=== PATIENT | female | born 1970 ===

== ENCOUNTER 2016-08-14 20:56 | Emergency (ER) | payer OTHER ==
--- NOTE | 2016-08-14 22:29 | ED ORDER SUMMARY ---
..... Patient: ELDER COHEN OrderSheet [facility] VisitID: [id number] [address] [place] [address] 46y, F Registration Date/Time: 08/14/2016 ORDER SHEET Weight: 90.7 kg (stated) Allergies: No Known Drug Allergy GENERAL ORDERS: MEDICATION ORDERS: Prednisone PO 40 mg (NOW) (21:47 08/14/2016 Moni Garcia) (Ack 21:50 EInderbitzen R.N.) (21:53 EInderbitzen R.N.) DuoNeb Neb Tx 1 unit dose (NOW) (21:48 08/14/2016 Moni Garcia) (Ack 21:50 EInderbitzen R.N.) (22:[facility] Albuterol Neb Tx 1 unit dose (NOW) (21:52 08/14/2016 Moni Garcia) (Ack 21:53 EInderbitzen R.N.) (22:02 [facility] IV FLUIDS: ORDER SHEET NOTES: [Electronically signed by Manuel Garcia Dr. (22:29 08/14/2016)] [Electronically signed by Krystal Aguayo R.N. (22:43 08/14/2016)] [Electronically locked/signed by Krystal Aguayo R.N. (22:43 08/14/2016)]
--- NOTE | 2016-08-14 22:29 | ED NURSING NOTES ---
Clinical Report - Nurses [facility] [address] [place] [address] 08/14/2016 20:57 Patient: ELDER COHEN TRIAGE Triage time 21:15 Aug 14 2016. Acuity: LEVEL 3. Chief Complaint: "ASTHMA ATTACK" and WHEEZING. Alert. No acute distress. --21:20 Jo Ann Salamanca R.N. 21:15 08/14/16. BP: 124/69. HR: 101. RR: 24. O2 saturation: 100%. Temp: 98.2 F. Pain level now 0/10. --21:20 Jo Ann Salamanca R.N. Weight: 90.7 kg stated. Height/Length: 64 inches Per Patient. BMI: 34.3. --21:13 Jo Ann Salamanca R.N. Medications Pro air. --21:17 Jo Ann Salamanca R.N. Claritin-D 24 Hour Oral. --21:17 Jo Ann Salamanca R.N. Medication/allergy information source: the patient. --21:20 Jo Ann Salamanca R.N. Allergies No Known Drug Allergy. --21:17 Jo Ann Salamanca R.N. History Arrived by private vehicle. Historian: patient. Primary physician (Ilya). ( 18:00 Asthma - "feel very tight" wheezing audible in triage. Pt using Pro Air twice tonight, not better.). This started today. She has had a cough and wheezing. Treatment VIOLIN TUTOR: (Pro Air). PAST MEDICAL HX: Asthma. Immunizations: up-to-date. Last normal menstrual period- July 2016. Denies current . SOCIAL HX: Never smoker. Occasional alcohol use. No drug use. No infectious disease exposure. FALL RISK ASSESSMENT: Fall risk assessment completed. No fall risk identified. NUTRITIONAL RISK ASSESSMENT: The nutritional risk assessment revealed no deficiencies. FUNCTIONAL ASSESSMENT: Functional assessment: no impairments noted. LEARNING NEEDS ASSESSMENT: The learning needs assessment revealed no barriers. SKIN INTEGRITY ASSESSMENT: Skin integrity risk assessment completed. No skin integrity risk identified. --21:20 Jo Ann Salamanca R.N. PROBLEMS: Pelvic Pain. Vaginal Bleeding. Back Pain. Dysfunctional Uterine Bleeding. --21:17 Jo Ann Salamanca R.N. ADDITIONAL SURGERIES: Bunionectomy. . Jaw implant. Tubal Ligation. --21:17 Jo Ann Salamanca R.N. Interventions ID band on patient. To room. --21:20 Jo Ann Salamanca R.N. NURSING PROGRESS NOTES ( pt to family consult room for breathing tx, RT called on pt's arrival.). --21:20 Jo Ann Salamanca R.N. 21:37 08/14/2016 Duoneb (Ipratropium-Albuterol) Neb TX Nebulizer 1 unit dose given. Given by the respiratory therapist. Allergies verified and confirmed 5 rights. --22:02 Robson Chery, ER Dry End Operator 21:37 08/14/2016 Albuterol Neb TX Nebulizer 1 unit dose given. --22:02 Robson Chery, ER Dry End Operator late entry - 21:40 08/14/16. The initial plan of care for this patient includes an assessment with efforts to address impairment of the respiratory system. This plan of care was discussed with the patient. Patient gowned. Reassurance given. --22:29 Krystal Aguayo R.N. 21:40 08/14/16. Patient ready for evaluation. --22:29 Krystal Aguayo R.N. 21:52 08/14/2016 Prednisone PO Tablets 40 mg given. Allergies verified and confirmed 5 rights. --21:53 Krystal Aguayo R.N. 22:32 08/14/16. Patient waiting for disposition. --22:32 Krystal Aguayo R.N. DISPOSITION / DISCHARGE 22:42 08/14/16. Condition at departure: improved and stable. The goals identified in the patient's plan of care were met. --22:42 Krystal Aguayo R.N. 22:43 08/14/16. Condition at departure: improved and stable. No learning barriers present. Reviewed medication(s) side effects, precautions, dosing and course information. Prescription(s) given to the patient. Reviewed referral to a primary care physician for followup. Summary of care provided to patient via paper. Patient verbalized understanding. Written instructions provided in Estonian. The patient was discharged home and unaccompanied at time of discharge. She left the Emergency Department ambulatory and via private vehicle. Patient driving. --22:43 Krystal Aguayo R.N. 22:43 08/14/16. BP: 100/57. HR: 110. RR: 20. O2 saturation: 95%. Temp: 98.2 F. Pain level now 0/10. --22:43 Krystal Aguayo R.N. Departure time: 22:43 Aug 14 2016. --22:43 Krystal Aguayo R.N. Locked/Released at 08/14/2016 22:43 by Krystal Aguayo R.N.
--- NOTE | 2016-08-14 22:29 | ED NURSING NOTES ---
Clinical Report - Nurses [facility] [address] [place] [address] 08/14/2016 20:57 Patient: ELDER COHEN TRIAGE Triage time 21:15 Aug 14 2016. Acuity: LEVEL 3. Chief Complaint: "ASTHMA ATTACK" and WHEEZING. Alert. No acute distress. --21:20 Jo Ann Salamanca R.N. 21:15 08/14/16. BP: 124/69. HR: 101. RR: 24. O2 saturation: 100%. Temp: 98.2 F. Pain level now 0/10. --21:20 Jo Ann Salamanca R.N. Weight: 90.7 kg stated. Height/Length: 64 inches Per Patient. BMI: 34.3. --21:13 Jo Ann Salamanca R.N. Medications Pro air. --21:17 Jo Ann Salamanca R.N. Claritin-D 24 Hour Oral. --21:17 Jo Ann Salamanca R.N. Medication/allergy information source: the patient. --21:20 Jo Ann Salamanca R.N. Allergies No Known Drug Allergy. --21:17 Jo Ann Salamanca R.N. History Arrived by private vehicle. Historian: patient. Primary physician (Ilya). ( 18:00 Asthma - "feel very tight" wheezing audible in triage. Pt using Pro Air twice tonight, not better.). This started today. She has had a cough and wheezing. Treatment BELT GLASS SANDER: (Pro Air). PAST MEDICAL HX: Asthma. Immunizations: up-to-date. Last normal menstrual period- July 2016. Denies current . SOCIAL HX: Never smoker. Occasional alcohol use. No drug use. No infectious disease exposure. FALL RISK ASSESSMENT: Fall risk assessment completed. No fall risk identified. NUTRITIONAL RISK ASSESSMENT: The nutritional risk assessment revealed no deficiencies. FUNCTIONAL ASSESSMENT: Functional assessment: no impairments noted. LEARNING NEEDS ASSESSMENT: The learning needs assessment revealed no barriers. SKIN INTEGRITY ASSESSMENT: Skin integrity risk assessment completed. No skin integrity risk identified. --21:20 Jo Ann Salamanca R.N. PROBLEMS: Pelvic Pain. Vaginal Bleeding. Back Pain. Dysfunctional Uterine Bleeding. --21:17 Jo Ann Salamanca R.N. ADDITIONAL SURGERIES: Bunionectomy. . Jaw implant. Tubal Ligation. --21:17 Jo Ann Salamanca R.N. Interventions ID band on patient. To room. --21:20 Jo nAn Salamanca R.N. NURSING PROGRESS NOTES ( pt to family consult room for breathing tx, RT called on pt's arrival.). --21:20 Jo Ann Salamanca R.N. 21:37 08/14/2016 Duoneb (Ipratropium-Albuterol) Neb TX Nebulizer 1 unit dose given. Given by the respiratory therapist. Allergies verified and confirmed 5 rights. --22:02 Robson Chery, ER Store Deli Manager 21:37 08/14/2016 Albuterol Neb TX Nebulizer 1 unit dose given. --22:02 Robson Chery, ER Store Deli Manager late entry - 21:40 08/14/16. The initial plan of care for this patient includes an assessment with efforts to address impairment of the respiratory system. This plan of care was discussed with the patient. Patient gowned. Reassurance given. --22:29 Krystal Aguayo R.N. 21:40 08/14/16. Patient ready for evaluation. --22:29 Krystal Aguayo R.N. 21:52 08/14/2016 Prednisone PO Tablets 40 mg given. Allergies verified and confirmed 5 rights. --21:53 Krystal Aguayo R.N. 22:32 08/14/16. Patient waiting for disposition. --22:32 Krystal Aguayo R.N. DISPOSITION / DISCHARGE 22:42 08/14/16. Condition at departure: improved and stable. The goals identified in the patient's plan of care were met. --22:42 Krystal Aguayo R.N. 22:43 08/14/16. Condition at departure: improved and stable. No learning barriers present. Reviewed medication(s) side effects, precautions, dosing and course information. Prescription(s) given to the patient. Reviewed referral to a primary care physician for followup. Summary of care provided to patient via paper. Patient verbalized understanding. Written instructions provided in Italian. The patient was discharged home and unaccompanied at time of discharge. She left the Emergency Department ambulatory and via private vehicle. Patient driving. --22:43 Krystal Aguayo R.N. 22:43 08/14/16. BP: 100/57. HR: 110. RR: 20. O2 saturation: 95%. Temp: 98.2 F. Pain level now 0/10. --22:43 Krystal Aguayo R.N. Departure time: 22:43 Aug 14 2016. --22:43 Krystal Aguayo R.N. Locked/Released at 08/14/2016 22:43 by Krystal Aguayo R.N.
--- NOTE | 2016-08-14 22:29 | ED ORDER SUMMARY ---
..... Patient: ELDER COHEN OrderSheet VisitID: [id number] [address] [place] [address] 46y, F Registration Date/Time: 08/14/2016 ORDER SHEET Weight: 90.7 kg (stated) Allergies: No Known Drug Allergy GENERAL ORDERS: MEDICATION ORDERS: Prednisone PO 40 mg (NOW) (21:47 08/14/2016 Moni Garcia) (Ack 21:50 EInderbitzen R.N.) (21:53 EInderbitzen R.N.) DuoNeb Neb Tx 1 unit dose (NOW) (21:48 08/14/2016 Moni Garcia) (Ack 21:50 EInderbitzen R.N.) (22:02 [facility] Act[facility]) Albuterol Neb Tx 1 unit dose (NOW) (21:52 08/14/2016 Moni Garcia) (Ack 21:53 EInderbitzen R.N.) (22:02 [facility] Act[facility]) IV FLUIDS: ORDER SHEET NOTES: [Electronically signed by Manuel Garcia Dr. (22:29 08/14/2016)] [Electronically signed by Krystal Aguayo R.N. (22:43 08/14/2016)] [Electronically locked/signed by Krystal Aguayo R.N. (22:43 08/14/2016)]
--- NOTE | 2016-08-14 22:29 | ED CLINICAL REPORT ---
Clinical Report - Physicians/Mid Levels [facility] [address] [place] [address] 08/14/2016 20:57 Patient: ELDER COHEN Time Seen: 21:40; initial patient contact. Arrived- By private vehicle. Historian- patient. HISTORY OF PRESENT ILLNESS Chief Complaint: DYSPNEA and HISTORY OF ASTHMA. This started just prior to arrival and is still present and worsening. It was gradual in onset and has been constant. The dyspnea is described as moderate. (No improvement with inhaler). She has not had worsening of dyspnea with walking or exertion. No improvement of dyspnea with rest. The patient has had a cough and wheezing. No sputum production, fever, sweating episodes, chills or dyspnea on exertion. No chest pain or discomfort, calf pain, foot swelling or orthopnea. No anxiety or palpitations. Similar symptoms previously: Many times. Recent medical care: Not recently seen/assessed. REVIEW OF SYSTEMS The patient has had a nasal discharge. No sinus drainage or fainting episodes. All systems otherwise negative, except as recorded above. PAST HISTORY Pelvic Pain. Vaginal Bleeding. Back Pain. Dysfunctional Uterine Bleeding. SURGERIES: Bunionectomy. . Jaw implant. Tubal Ligation. Medications: Claritin-D 24 Hour Oral. Pro air. Allergies: No Known Drug Allergy. SOCIAL HISTORY Never smoker. Occasional alcohol use. No drug use. ADDITIONAL NOTES The nursing notes have been reviewed. PHYSICAL EXAM Vital Signs: 08/14/2016 21:15 BP: 124/69. HR: 101. RR: 24. O2 saturation: 100%. Temp: 98.2 F. Have been reviewed. Blood pressure normal. Tachycardic. Tachypneic. Temperature normal. Oxygen saturation normal. Appearance: Alert. No acute distress. Eyes: Eyes normal inspection. ENT: Pharynx normal. Neck: Normal inspection. No jugular venous distention. CVS: Normal heart rate and rhythm. Heart sounds normal. Respiratory: No respiratory distress. Breath sounds normal. (Exam after Duoneb and Albuterol neb). Skin: Normal skin color. No rash. Extremities: No calf tenderness. No lower extremity edema. Neuro: Oriented X 3. PROGRESS AND PROCEDURES Course of Care: Prednisone 40 mg PO given. DuoNeb nebulizer treatment (1 unit dose) given. The patient's symptoms are now gone. Physical exam findings are improved. Disposition: Discharged home in good and improved condition. Condition: good. CLINICAL IMPRESSION Mild intermittent asthma with an acute exacerbation. No status asthmaticus. INSTRUCTIONS Avoid tobacco smoke. Your Current Medications: CONTINUE TAKING THE FOLLOWING MEDICATIONS: Claritin-D 24 Hour Oral. Pro air*. Prescription Medications: Prednisone 20 mg: take 2 orally every day for 4 days. Dispense sufficient quantity. No refills. (Start on 08/15/16) Follow-up with: [facility], Family Practice, , [address] [place] [address], [id number], [place] [id number] Follow up in about two days. Call for an appointment. (Electronically signed by Manuel Garcia Dr. 08/14/2016 22:29)
--- NOTE | 2016-08-14 22:29 | ED CLINICAL REPORT ---
Clinical Report - Physicians/Mid Levels [facility] [address] [place] [address] 08/14/2016 20:57 Patient: ELDER COHEN Time Seen: 21:40; initial patient contact. Arrived- By private vehicle. Historian- patient. HISTORY OF PRESENT ILLNESS Chief Complaint: DYSPNEA and HISTORY OF ASTHMA. This started just prior to arrival and is still present and worsening. It was gradual in onset and has been constant. The dyspnea is described as moderate. (No improvement with inhaler). She has not had worsening of dyspnea with walking or exertion. No improvement of dyspnea with rest. The patient has had a cough and wheezing. No sputum production, fever, sweating episodes, chills or dyspnea on exertion. No chest pain or discomfort, calf pain, foot swelling or orthopnea. No anxiety or palpitations. Similar symptoms previously: Many times. Recent medical care: Not recently seen/assessed. REVIEW OF SYSTEMS The patient has had a nasal discharge. No sinus drainage or fainting episodes. All systems otherwise negative, except as recorded above. PAST HISTORY Pelvic Pain. Vaginal Bleeding. Back Pain. Dysfunctional Uterine Bleeding. SURGERIES: Bunionectomy. . Jaw implant. Tubal Ligation. Medications: Claritin-D 24 Hour Oral. Pro air. Allergies: No Known Drug Allergy. SOCIAL HISTORY Never smoker. Occasional alcohol use. No drug use. ADDITIONAL NOTES The nursing notes have been reviewed. PHYSICAL EXAM Vital Signs: 08/14/2016 21:15 BP: 124/69. HR: 101. RR: 24. O2 saturation: 100%. Temp: 98.2 F. Have been reviewed. Blood pressure normal. Tachycardic. Tachypneic. Temperature normal. Oxygen saturation normal. Appearance: Alert. No acute distress. Eyes: Eyes normal inspection. ENT: Pharynx normal. Neck: Normal inspection. No jugular venous distention. CVS: Normal heart rate and rhythm. Heart sounds normal. Respiratory: No respiratory distress. Breath sounds normal. (Exam after Duoneb and Albuterol neb). Skin: Normal skin color. No rash. Extremities: No calf tenderness. No lower extremity edema. Neuro: Oriented X 3. PROGRESS AND PROCEDURES Course of Care: Prednisone 40 mg PO given. DuoNeb nebulizer treatment (1 unit dose) given. The patient's symptoms are now gone. Physical exam findings are improved. Disposition: Discharged home in good and improved condition. Condition: good. CLINICAL IMPRESSION Mild intermittent asthma with an acute exacerbation. No status asthmaticus. INSTRUCTIONS Avoid tobacco smoke. Your Current Medications: CONTINUE TAKING THE FOLLOWING MEDICATIONS: Claritin-D 24 Hour Oral. Pro air*. Prescription Medications: Prednisone 20 mg: take 2 orally every day for 4 days. Dispense sufficient quantity. No refills. (Start on 08/15/16) Follow-up with: [facility], Family Practice, , [address] [place] [address], [id number], [place] [address] Follow up in about two days. Call for an appointment. (Electronically signed by Manuel Garcia Dr. 08/14/2016 22:29)
--- NOTE | 2016-08-14 22:43 | ED MED RECONCILIATION SUMMARY ---
Patient: ELDER COHEN Medication Reconciliation Report [facility] VisitID: [id number] [address] [place] [address] 46y, F Registration Date/Time: 08/14/2016 Weight: 90.7 kg Height/Length: 64 in. BMI: 34.3 ALLERGIES: No Known Drug Allergy The patient's Home Medications are listed below: CONTINUE TAKING THE FOLLOWING MEDICATIONS: Claritin-D 24 Hour Oral Pro air The source(s) of the original Home Medication information: patient The following Medications were given to the patient in the Emergency Department: Prednisone [PO] PO 40 mg, administered: 08/14/2016 9:52:00 PM Duoneb [Neb Tx] Neb TX 1 unit dose, administered: 08/14/2016 9:37:00 PM Albuterol [Neb Tx] Neb TX 1 unit dose, administered: 08/14/2016 9:37:00 PM The following Medications were prescribed to the patient: Prednisone 20 mg: take 2 orally every day for 4 days. Dispense sufficient quantity. No refills.(Start on 08/15/16) -- Manuel Garcia Dr.
--- NOTE | 2016-08-14 22:43 | ED DISCHARGE INSTRUCTIONS ---
Patient: ELDER COHEN General Instructions [facility] VisitID: [id number] [place] [id number] 46y, F Registration Date/Time: 08/14/2016 Mild intermittent asthma with an acute exacerbation. No status asthmaticus. INSTRUCTIONS Avoid tobacco smoke. Your Current Medications: CONTINUE TAKING THE FOLLOWING MEDICATIONS: Claritin-D 24 Hour Oral. Pro air*. Prescription Medications: Prednisone 20 mg: take 2 orally every day for 4 days. Dispense sufficient quantity. No refills. (Start on 08/15/16) Follow-up with: [facility], [facility], , [address] [place] [address], [address], [place] [id number] Follow up in about two days. Call for an appointment. ADDITIONAL INFORMATION Asthma [Adult] Asthma is a disease where the small air passages within the lung go into spasm and restrict the flow of air. Inflammation and swelling of the airways cause further restriction. During an acute asthma attack, these factors cause difficulty breathing, wheezing, cough and chest tightness. An asthma attack can be triggered by many things. Common triggers include the common cold, bronchitis, pneumonia, irritants such as smoke or pullutants in the air, emotional upset and heavy exercise. Inmany adults with asthma, allergies todust, mold, pollen and animal dander can cause an asthma attack. Skipping doses of daily asthma medicine can also bring on an asthma attack. Asthma can be controlled with proper medicines and decreased exposure to known allergens. Home Care: Take prescribed medicine exactly at the times advised. If you have a hand-held inhaler or aerosol breathing medicine, do not use it more than once every four hours, unless told to do so. (If you need this medicine more than every four hours, you may need to return to the Emergency Room.) If prescribed an antibiotic or prednisone, take all of the medicine even if you are feeling better after a few days. Do not smoke. Avoid being exposed to the smoke of others. Some persons with asthma have worsening of their symptoms when they take aspirin and non-steroidal medicines like ibuprofen (Motrin, Advil) and naproxen (Aleve, Naprosyn). Talk to your doctor if you think this may apply to you. Acetaminophen (Tylenol)should be safe to use. Follow Up with your doctor, or as advised by our staff. Always bring all of your current medicines with you for your doctor to see. If you do not already have one, talk to your doctor about developing a personalized "Asthma Action Plan." [NOTE: A pneumococcal vaccine and yearly flu shot (every fall) are recommended. Ask your doctor about this.] Get Prompt Medical Attention if any of the following occur: Increased wheezing or shortness of breath Need to use your inhalers more often than usual without relief Fever of 100.4F (38C) or higher, or as directed by your healthcare provider Coughing up lots of dark-colored or bloody sputum (mucus) Chest pain with each breath You do not start to improve within 24 hours Call 911 If Any Of The Following Occur : Trouble walking or talking because of shortness of breath If you use a peak flow meter andyou are still in the red zone (less than 50 percent) 15 minutes after using inhaler medication Lips or fingernails turning foss or blue Prednisone Oral tablet What is this medicine? PREDNISONE (PRED ni sone) is a corticosteroid. It is commonly used to treat inflammation of the skin, joints, lungs, and other organs. Common conditions treated include asthma, allergies, and arthritis. It is also used for other conditions, such as blood disorders and diseases of the adrenal glands. How should I use this medicine? Take this medicine by mouth with a glass of water. Follow the directions on the prescription label. Take this medicine with food. If you are taking this medicine once a day, take it in the morning. Do not take more medicine than you are told to take. Do not suddenly stop taking your medicine because you may develop a severe reaction. Your doctor will tell you how much medicine to take. If your doctor wants you to stop the medicine, the dose may be slowly lowered over time to avoid any side effects. Talk to your social sciences lecturer regarding the use of this medicine in children. Special care may be needed. What side effects may I notice from receiving this medicine? Side effects that you should report to your doctor or health manager intensive care unit as soon as possible: allergic reactions like skin rash, itching or hives, swelling of the face, lips, or tongue changes in emotions or moods changes in vision depressed mood eye pain fever or chills, cough, sore throat, pain or difficulty passing urine increased thirst swelling of ankles, feet Side effects that usually do not require medical attention (report to your doctor or health manager intensive care unit if they continue or are bothersome): confusion, excitement, restlessness headache nausea, vomiting skin problems, acne, thin and shiny skin trouble sleeping weight gain What may interact with this medicine? Do not take this medicine with any of the following medications: metyrapone mifepristone This medicine may also interact with the following medications: aminoglutethimide amphotericin B aspirin and aspirin-like medicines barbiturates certain medicines for diabetes, like glipizide or glyburide cholestyramine cholinesterase inhibitors cyclosporine digoxin diuretics ephedrine female hormones, like estrogens and control pills isoniazid ketoconazole NSAIDS, medicines for pain and inflammation, like ibuprofen or naproxen phenytoin rifampin toxoids vaccines warfarin What if I miss a dose? If you miss a dose, take it as soon as you can. If it is almost time for your next dose, talk to your doctor or health manager intensive care unit. You may need to miss a dose or take an extra dose. Do not take double or extra doses without advice. Where should I keep my medicine? Keep out of the reach of children. Store at room temperature between 15 and 30 degrees C (59 and 86 degrees F). Protect from light. Keep container tightly closed. Throw away any unused medicine after the expiration date. What should I tell my health care provider before I take this medicine? They need to know if you have any of these conditions: Carmel's syndrome diabetes glaucoma heart disease high blood pressure infection (especially a virus infection such as chickenpox, cold sores, or herpes) kidney disease liver disease mental illness myasthenia gravis osteoporosis seizures stomach or intestine problems thyroid disease an unusual or allergic reaction to lactose, prednisone, other medicines, foods, dyes, or preservatives or trying to get breast-feeding What should I watch for while using this medicine? Visit your doctor or health manager intensive care unit for regular checks on your progress. If you are taking this medicine over a prolonged period, carry an identification card with your name and address, the type and dose of your medicine, and your doctor's name and address. This medicine may increase your risk of getting an infection. Tell your doctor or health manager intensive care unit if you are around anyone with measles or chickenpox, or if you develop sores or blisters that do not heal properly. If you are going to have surgery, tell your doctor or health manager intensive care unit that you have taken this medicine within the last twelve months. Ask your doctor or health manager intensive care unit about your diet. You may need to lower the amount of salt you eat. This medicine may affect blood sugar levels. If you have diabetes, check with your doctor or health manager intensive care unit before you change your diet or the dose of your diabetic medicine. You have been given the following additional information: Asthma, Acute (Adult) Prednisone Oral tablet (Electronically signed by Manuel Garcia Dr. 08/14/2016 22:29)
--- NOTE | 2016-08-14 22:43 | ED MED RECONCILIATION SUMMARY ---
Patient: ELDER COHEN Medication Reconciliation Report [facility] VisitID: [id number] [address] [place] [address] 46y, F Registration Date/Time: 08/14/2016 Weight: 90.7 kg Height/Length: 64 in. BMI: 34.3 ALLERGIES: No Known Drug Allergy The patient's Home Medications are listed below: CONTINUE TAKING THE FOLLOWING MEDICATIONS: Claritin-D 24 Hour Oral Pro air The source(s) of the original Home Medication information: patient The following Medications were given to the patient in the Emergency Department: Prednisone [PO] PO 40 mg, administered: 08/14/2016 9:52:00 PM Duoneb [Neb Tx] Neb TX 1 unit dose, administered: 08/14/2016 9:37:00 PM Albuterol [Neb Tx] Neb TX 1 unit dose, administered: 08/14/2016 9:37:00 PM The following Medications were prescribed to the patient: Prednisone 20 mg: take 2 orally every day for 4 days. Dispense sufficient quantity. No refills.(Start on 08/15/16) -- Manuel Garcia Dr.
--- NOTE | 2016-08-14 22:43 | ED MAR SUMMARY ---
..... Medication Administration Record [facility] [address] [place] [address] Patient: ELDER COHEN Visit ID: [id number] 46y, F Weight: 90.7 kg Height/Length: 64 in BMI: 34.3 ALLERGIES: No Known Drug Allergy Given 21:37 08/14/2016 Robson Chery, ER Counter Professional Medication Administered: DUONEB [NEB TX] (IPRATROPIUM-ALBUTEROL), Dose: 1 unit dose Nebulizer Neb TX. Medication Ordered: DuoNeb Neb Tx 1 unit dose (NOW). Given 21:08/14/2016 Robson Chery, ER Counter Professional Medication Administered: ALBUTEROL [NEB TX], Dose: 1 unit dose Nebulizer Neb TX. Medication Ordered: Albuterol Neb Tx 1 unit dose (NOW). Given 21:08/14/2016 Krystal Aguayo R.N. Medication Administered: PREDNISONE [PO], Dose: 40 mg Tablets PO. Medication Ordered: Prednisone PO 40 mg (NOW).
--- NOTE | 2016-08-14 22:43 | ED DISCHARGE INSTRUCTIONS ---
Patient: ELDER COHEN General Instructions [facility] VisitID: [id number] Cliff [place] [id number] 46y, F Registration Date/Time: 08/14/2016 Mild intermittent asthma with an acute exacerbation. No status asthmaticus. INSTRUCTIONS Avoid tobacco smoke. Your Current Medications: CONTINUE TAKING THE FOLLOWING MEDICATIONS: Claritin-D 24 Hour Oral. Pro air*. Prescription Medications: Prednisone 20 mg: take 2 orally every day for 4 days. Dispense sufficient quantity. No refills. (Start on 08/15/16) Follow-up with: [facility], [facility], , [address] [place] [address], [address], [place] [id number] Follow up in about two days. Call for an appointment. ADDITIONAL INFORMATION Asthma [Adult] Asthma is a disease where the small air passages within the lung go into spasm and restrict the flow of air. Inflammation and swelling of the airways cause further restriction. During an acute asthma attack, these factors cause difficulty breathing, wheezing, cough and chest tightness. An asthma attack can be triggered by many things. Common triggers include the common cold, bronchitis, pneumonia, irritants such as smoke or pullutants in the air, emotional upset and heavy exercise. Inmany adults with asthma, allergies todust, mold, pollen and animal dander can cause an asthma attack. Skipping doses of daily asthma medicine can also bring on an asthma attack. Asthma can be controlled with proper medicines and decreased exposure to known allergens. Home Care: Take prescribed medicine exactly at the times advised. If you have a hand-held inhaler or aerosol breathing medicine, do not use it more than once every four hours, unless told to do so. (If you need this medicine more than every four hours, you may need to return to the Emergency Room.) If prescribed an antibiotic or prednisone, take all of the medicine even if you are feeling better after a few days. Do not smoke. Avoid being exposed to the smoke of others. Some persons with asthma have worsening of their symptoms when they take aspirin and non-steroidal medicines like ibuprofen (Motrin, Advil) and naproxen (Aleve, Naprosyn). Talk to your doctor if you think this may apply to you. Acetaminophen (Tylenol)should be safe to use. Follow Up with your doctor, or as advised by our staff. Always bring all of your current medicines with you for your doctor to see. If you do not already have one, talk to your doctor about developing a personalized "Asthma Action Plan." [NOTE: A pneumococcal vaccine and yearly flu shot (every fall) are recommended. Ask your doctor about this.] Get Prompt Medical Attention if any of the following occur: Increased wheezing or shortness of breath Need to use your inhalers more often than usual without relief Fever of 100.4F (38C) or higher, or as directed by your healthcare provider Coughing up lots of dark-colored or bloody sputum (mucus) Chest pain with each breath You do not start to improve within 24 hours Call 911 If Any Of The Following Occur : Trouble walking or talking because of shortness of breath If you use a peak flow meter andyou are still in the red zone (less than 50 percent) 15 minutes after using inhaler medication Lips or fingernails turning foss or blue Prednisone Oral tablet What is this medicine? PREDNISONE (PRED ni sone) is a corticosteroid. It is commonly used to treat inflammation of the skin, joints, lungs, and other organs. Common conditions treated include asthma, allergies, and arthritis. It is also used for other conditions, such as blood disorders and diseases of the adrenal glands. How should I use this medicine? Take this medicine by mouth with a glass of water. Follow the directions on the prescription label. Take this medicine with food. If you are taking this medicine once a day, take it in the morning. Do not take more medicine than you are told to take. Do not suddenly stop taking your medicine because you may develop a severe reaction. Your doctor will tell you how much medicine to take. If your doctor wants you to stop the medicine, the dose may be slowly lowered over time to avoid any side effects. Talk to your skills instructor regarding the use of this medicine in children. Special care may be needed. What side effects may I notice from receiving this medicine? Side effects that you should report to your doctor or health body care manager as soon as possible: allergic reactions like skin rash, itching or hives, swelling of the face, lips, or tongue changes in emotions or moods changes in vision depressed mood eye pain fever or chills, cough, sore throat, pain or difficulty passing urine increased thirst swelling of ankles, feet Side effects that usually do not require medical attention (report to your doctor or health body care manager if they continue or are bothersome): confusion, excitement, restlessness headache nausea, vomiting skin problems, acne, thin and shiny skin trouble sleeping weight gain What may interact with this medicine? Do not take this medicine with any of the following medications: metyrapone mifepristone This medicine may also interact with the following medications: aminoglutethimide amphotericin B aspirin and aspirin-like medicines barbiturates certain medicines for diabetes, like glipizide or glyburide cholestyramine cholinesterase inhibitors cyclosporine digoxin diuretics ephedrine female hormones, like estrogens and control pills isoniazid ketoconazole NSAIDS, medicines for pain and inflammation, like ibuprofen or naproxen phenytoin rifampin toxoids vaccines warfarin What if I miss a dose? If you miss a dose, take it as soon as you can. If it is almost time for your next dose, talk to your doctor or health body care manager. You may need to miss a dose or take an extra dose. Do not take double or extra doses without advice. Where should I keep my medicine? Keep out of the reach of children. Store at room temperature between 15 and 30 degrees C (59 and 86 degrees F). Protect from light. Keep container tightly closed. Throw away any unused medicine after the expiration date. What should I tell my health care provider before I take this medicine? They need to know if you have any of these conditions: Carmel's syndrome diabetes glaucoma heart disease high blood pressure infection (especially a virus infection such as chickenpox, cold sores, or herpes) kidney disease liver disease mental illness myasthenia gravis osteoporosis seizures stomach or intestine problems thyroid disease an unusual or allergic reaction to lactose, prednisone, other medicines, foods, dyes, or preservatives or trying to get breast-feeding What should I watch for while using this medicine? Visit your doctor or health body care manager for regular checks on your progress. If you are taking this medicine over a prolonged period, carry an identification card with your name and address, the type and dose of your medicine, and your doctor's name and address. This medicine may increase your risk of getting an infection. Tell your doctor or health body care manager if you are around anyone with measles or chickenpox, or if you develop sores or blisters that do not heal properly. If you are going to have surgery, tell your doctor or health body care manager that you have taken this medicine within the last twelve months. Ask your doctor or health body care manager about your diet. You may need to lower the amount of salt you eat. This medicine may affect blood sugar levels. If you have diabetes, check with your doctor or health body care manager before you change your diet or the dose of your diabetic medicine. You have been given the following additional information: Asthma, Acute (Adult) Prednisone Oral tablet (Electronically signed by Manuel Garcia Dr. 08/14/2016 22:29)
--- NOTE | 2016-08-14 22:43 | ED MAR SUMMARY ---
..... Medication Administration Record [facility] [address] [place] [address] Patient: ELDER COHEN Visit ID: [id number] 46y, F Weight: 90.7 kg Height/Length: 64 in BMI: 34.3 ALLERGIES: No Known Drug Allergy Given 21:37 08/14/2016 Robson Chery, ER Portrait Consultant Medication Administered: DUONEB [NEB TX] (IPRATROPIUM-ALBUTEROL), Dose: 1 unit dose Nebulizer Neb TX. Medication Ordered: DuoNeb Neb Tx 1 unit dose (NOW). Given 21:08/14/2016 Robson Chery, ER Portrait Consultant Medication Administered: ALBUTEROL [NEB TX], Dose: 1 unit dose Nebulizer Neb TX. Medication Ordered: Albuterol Neb Tx 1 unit dose (NOW). Given 21:08/14/2016 Krystal Aguayo R.N. Medication Administered: PREDNISONE [PO], Dose: 40 mg Tablets PO. Medication Ordered: Prednisone PO 40 mg (NOW).
== END 2016-08-14 22:43 | disposition home or self-care (01) ==
LOC: ED SRH 20:56
DX: J45.21 Mild intermittent asthma with (acute) exacerbation (principal)